=== PATIENT | male | born 1950 | race Caucasian/White ===

== ENCOUNTER 2019-01-02 10:21 | Outpatient (CLI) | payer MEDICARE, BC ==
[2019-01-02] MEDS ORDERED: BRIM5DRO2 LEFTEYE (11:49)
[2019-01-02] MEDS ORDERED: pred forte LEFTEYE (11:49)
[2019-01-02] MEDS ORDERED: OMNIPAQUE 350 MG/ML, 150 ML BOTTLE ONE (15:16)
[2019-01-03] MEDS ORDERED: ASPI-650 PO (06:52)
[2019-01-03] MEDS ORDERED: VALA500T PO (06:52)
[2019-01-03] MEDS ORDERED: OFLO5DRO7 LEFTEYE (06:57)
[2019-01-03] MEDS ORDERED: LATA7.5D LEFTEYE (06:57)
[2019-01-03] MEDS ORDERED: PRED5DRO20 LEFTEYE (06:57)
== END 2019-01-02 23:59 | disposition home or self-care (01) ==
LOC: CFH 10:21
PROVIDERS: ATTEND Internal Medicine Cardiovascular Disease
DX: I51.3 Intracardiac thrombosis, not elsewhere classified (principal); J90 Pleural effusion, not elsewhere classified; I48.0 Paroxysmal atrial fibrillation
CPT/HCPCS: 71046; 75572; Q9967

== ENCOUNTER 2019-01-03 06:25 | Observation (INO) | payer MEDICARE, BC ==
[2019-01-02 11:50] VITALS: BP 121/77
[~2019-01-03] VITALS: Ht 177.8 cm; Wt 75.0 kg
[~2019-01-03 06:25] MED LIST: BRIM5DRO2 LEFTEYE; pred forte LEFTEYE
[2019-01-03] MEDS ORDERED: SODIUM CHLORIDE 0.9% 1,000 ML IV SCH ×2 (06:48→07:00)
[2019-01-03] MEDS ORDERED: VALA500T PO (06:52)
[2019-01-03] MEDS ORDERED: ASPI-650 PO (06:52)
[2019-01-03] MEDS ORDERED: OFLO5DRO7 LEFTEYE (06:57)
[2019-01-03] MEDS ORDERED: PRED5DRO20 LEFTEYE (06:57)
[2019-01-03] MEDS ORDERED: LATA7.5D LEFTEYE (06:57)
[2019-01-03] MEDS ORDERED: LIDOCAINE 1%, 20ML ONE (07:04)
[2019-01-03] MEDS ORDERED: EPHEDRINE 50 MG/ML, 1ML ONE (08:09)
[2019-01-03] MEDS ORDERED: MIDAZOLAM 1 MG/ML, 2ML ONE (08:10)
[2019-01-03] MEDS ORDERED: FENTANYL PF 250 MCG/5ML ONE (08:10)
[2019-01-03] MEDS ORDERED: DEXAMETHASONE 4 MG/ML, 1ML ONE ×2 (08:26→08:53)
[2019-01-03] MEDS ORDERED: PROPOFOL 10 MG/ML, 20ML ONE (08:28)
[2019-01-03] MEDS ORDERED: SUCCINYLCHOLINE 20 MG/ML, 10ML ONE (08:53)
[2019-01-03] MEDS ORDERED: ONDANSETRON 2MG/ML, 2ML ONE (08:53)
[2019-01-03] MEDS ORDERED: ROCURONIUM 10MG/ML,5ML ONE (08:53)
[2019-01-03] MEDS ORDERED: ISOPROTERENOL 0.2MG/ML, 5ML ONE (10:07)
[2019-01-03] MEDS ORDERED: FENTANYL PF 100 MCG/2ML ONE (10:59)
[2019-01-03] MEDS ORDERED: ACETAMINOPHEN 325 MG TABLET PO PRN ×2 (11:00→11:30)
[2019-01-03] MEDS: APIXABAN 5 MG TABLET PO SCH ×2 (11:00→22:05)
[2019-01-03] MEDS ORDERED: MORPHINE SULFATE 4 MG/ML, 1ML IVPush PRN (11:30)
[2019-01-03] MEDS ORDERED: ONDANSETRON 2MG/ML, 2ML IV PRN (11:30)
[2019-01-03] MEDS ORDERED: HALOPERIDOL 5 MG/ML IV PRN (11:30)
[2019-01-03] MEDS ORDERED: EPHEDRINE 50 MG/ML, 1ML IVPush PRN (11:30)
[2019-01-03] MEDS ORDERED: hydrALAzine 20 MG/ML, 1ML IV PRN (11:30)
[2019-01-03] MEDS ORDERED: ONDANSETRON ODT 8 MG PO PRN (11:30)
[2019-01-03] MEDS ORDERED: HYDROmorphone 2 MG/ML, 1ML IVPush PRN (11:30)
[2019-01-03] MEDS ORDERED: PROMETHAZINE 25 MG/ML, 1ML IV PRN (11:30)
[2019-01-03] MEDS ORDERED: DIAZEPAM 5 MG/ML, 2ML IVPush PRN (11:30)
[2019-01-03] MEDS ORDERED: LABETALOL 5MG/ML, 20ML IV PRN (11:30)
[2019-01-03] MEDS ORDERED: FENTANYL PF 100 MCG/2ML IV PRN (11:30)
[2019-01-03] MEDS ORDERED: OXYcodone 5 MG/5 ML ORAL.SOL UDC PO PRN (11:30)
[2019-01-03] MEDS ORDERED: MIDAZOLAM 1 MG/ML, 2ML IV PRN (11:30)
[2019-01-03] MEDS ORDERED: MEPERIDINE/PF 25MG/0.5ML IVPush PRN (11:30)
[2019-01-03] MEDS ORDERED: PROMETHAZINE 12.5 MG SUPP PR PRN (11:30)
[2019-01-03] MEDS ORDERED: APIXABAN 5 MG TABLET ONE (11:49)
[2019-01-03 18:51] VITALS: BP 101/68
[2019-01-03] MEDS: TEMPLATE NON-FORMULARY MED. (Brimonidine Tartrate/Timolol (Combigan Eye Drops) 1 DROP) LEFTEYE SCH (21:00)
[2019-01-04 00:54] VITALS: BP 104/59
[2019-01-04 07:59] VITALS: BP 117/76
[2019-01-04] MEDS: APIXABAN 5 MG TABLET PO SCH (08:28)
[2019-01-04] MEDS ORDERED: VALACYCLOVIR 500MG TABLET PO SCH (09:00)
[2019-01-04] MEDS ORDERED: LATANOPROST OPHTH 0.005%, 2.5ML LEFTEYE SCH (09:00)
[2019-01-04] MEDS: TEMPLATE NON-FORMULARY MED. (Brimonidine Tartrate/Timolol (Combigan Eye Drops) 1 DROP) LEFTEYE SCH (09:00)
[2019-01-04] MEDS ORDERED: predniSOLONE OPHTH SUSP 1%, 5ML LEFTEYE SCH (09:00)
[2019-01-04] MEDS ORDERED: APIX5TAB PO (10:15)
== END 2019-01-04 11:15 | disposition home or self-care (01) ==
LOC: CACL 06:25 → ORIP 10:58 → 5SO 12:28 → DCLOUNGE 01-04 11:09
PROVIDERS: ADMIT Internal Medicine Cardiovascular Disease; ATTEND Internal Medicine Cardiovascular Disease
DX: I48.0 Paroxysmal atrial fibrillation (principal); Z79.899 Other long term (current) drug therapy
CPT/HCPCS: 85347; 93306; 93312; 93321; 93325; 93613; 93656; 93657; 93662; C1730; C1732; C1759; C1766; C1893; C1894; G0378; J0330; J1100; J2250; J2405; J2704; J3010; J3490